=== PATIENT | male | born 1990 | race Caucasian/White ===

== ENCOUNTER 2018-11-27 01:20 | Emergency (ER) | payer MEDICAID ==
[2018-11-27] MEDS ORDERED: NS 2,000 ML IV ONE (01:32)
--- NOTE | 2018-11-27 01:32 | EDPHY ---
H & P Stated Complaint: AMS, possible drug use Source: Patient, EMS - Personal History Current Tetanus/Diphtheria Vaccine: Unsure - Medical/Surgical History Hx Asthma: No Hx Chronic Respiratory Disease: No Hx Diabetes: No Hx Cardiac Disease: No Hx Renal Disease: No Hx Cirrhosis: No Hx Alcoholism: No Hx HIV/AIDS: No Hx Splenectomy or Spleen Trauma: No Other PMH: denies - Social History Smoking Status: Current every day smoker Time Seen by Provider: 11/27/18 01:31 HPI/ROS: HPI CHIEF COMPLAINT: Altered mental status, methamphetamine abuse. HISTORY OF PRESENT ILLNESS: 28-year-old male, admits to doing large amount of methamphetamine tonight. He states 1 g. Denies any other drugs or alcohol. He is unsure exactly what time he took this methamphetamine. He mainly refused answer most of my questions. He arrives to the emergency room altered, is pupils are 7 mm equal minimally reactive to light, he has noted be tachycardic in the 140s. He admits to methamphetamine use. He denies any focal complaints at this time. Past Medical History: Denies medical history Past Surgical History: Denies surgical history Social History: methamphetamine abuse tonight. Family History: Noncontributory ROS REVIEW OF SYSTEMS: Limited due to patient's mental state and under the influence of methamphetamine as well as not answer my questions. Exam Constitutional tachycardic, triage nursing summary reviewed, vital signs reviewed, awake/alert. Tachycardic 140s Eyes normal conjunctivae and sclera, 7 mm equal minimally reactive to light HENT normal inspection, atraumatic, moist mucus membranes, no epistaxis, neck supple/ no meningismus, no raccoon eyes. Respiratory clear to auscultation bilaterally, normal breath sounds, no respiratory distress, no wheezing. Cardiovascular tachycardic in the 140s, regular rhythm, no murmur, no edema, distal pulses normal. Gastrointestinal soft, non-tender, no rebound, no guarding, normal bowel sounds, no distension, no pulsatile mass. Genitourinary no CVA tenderness. Musculoskeletal no midline vertebral tenderness, full range of motion, no calf swelling, no tenderness of extremities, no meningismus, good pulses, neurovascularly intact. Skin pink, warm, & dry, no rash, skin atraumatic. Neurologic confused, does not answer my questions, under the influence of meth. Psychiatric normal mood/affect. Heme/Lymph/Immune no lymphadenopathy. Differential Diagnosis: Includes but is not limited to in a particular order polysubstance abuse, methamphetamine intoxication, dehydration, rhabdomyolysis. Medical Decision Making: Plan for this patient IV establishment IV fluid bolus 1 mg IV Ativan, Zyprexa 5 mg p.o., drug screen, alcohol level, electrolytes, EKG , chest x-ray. Re-evaluation: EKG interpretation by me on record in [employer] system. Impression time of EKG 1:32 a.m. Sinus tach 140 motion artifact. 0229: Chest x-ray reviewed. Negative for acute cardiopulmonary disease. Given the patient's agitation, tachycardia, meth use I have ordered the patient IV Ativan 2 mg, IV fluids 2 L, Zyprexa 5 mg will continue monitor. 0328: Patient continues to be very agitated. Patient is already received 2 mg IV Ativan and 10 mg Zyprexa. 3rd L ordered. 1 more mg of IV Ativan ordered. Will closely monitor on cardiac monitoring. Drug screen positive for methamphetamine. 0631AM: 11/27/18: Patient signed over to Dr. Raymond. Patient needs to metabolize medications and meth. Once awake, will need re-eval. ED x-ray chest one view negative for acute cardiopulmonary disease. Patient sobering from his Ativan, Zyprexa, and methamphetamine. Will need more time. (Jose Omer) Constitutional: Initial Vital Signs Temperature (C) 37.6 C 11/27/18 01:25 Heart Rate 141 H 11/27/18 01:25 Respiratory Rate 18 11/27/18 01:25 Blood Pressure 129/92 H 11/27/18 01:25 O2 Sat (%) 96 11/27/18 01:25 O2 Delivery Mode Room Air Allergies/Adverse Reactions: No Known Allergies Allergy (Unverified 01/17/10 13:05) Home Medications: Medication Instructions Recorded NK [No Known Home Meds] 11/27/18 Medical Decision Making Other Provider: I assumed care of this patient from Dr. Omer at 7:00 a.m.. He has been receiving IV fluids with improvement in his tachycardia. Will allow more time for him to metabolize his methamphetamine and re-evaluate. Patient's heart rate normalized. His mother arrived in the emergency department. I spoke with the mother and the patient. He admits to doing methamphetamine. Apparently he had been drug free for an appreciable period of time but relapsed relatively recently. He would like to return home. 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 His mother is comfortable with him being discharged from the hospital. When I examined him he was slightly sleepy but easily awakened, initially somewhat uncooperative with my questioning but ultimately cooperative (although not very forthcoming). On exam is pupils are pinpoint, speech is clear, he is moving all 4 extremities spontaneously and has a normal gait, heart has a regular rate and rhythm, lungs are clear, and abdomen is soft. He is being discharged home. He told me that he would like to enter rehab facility. I offered resources but both he and his mother stated that they know about all of the available resources. (Bessie Raymond) - Data Points Laboratory Results: Laboratory Results 11/27/18 01:22 11/27/18 01:22 Medications Given: Discontinued Medications Sodium Chloride (Ns) 2,000 mls @ 0 mls/hr IV EDNOW ONE; Wide Open PRN Reason: Protocol Stop: 11/27/18 01:33 Last Admin: 11/27/18 01:40 Dose: 2,000 mls Sodium Chloride (Ns) 1,000 mls @ 0 mls/hr IV ONCE ONE PRN Reason: Wide Open Stop: 11/27/18 03:03 Last Admin: 11/27/18 03:37 Dose: 1,000 mls Lorazepam (Ativan Injection) 1 mg IVP EDNOW ONE Stop: 11/27/18 01:37 Last Admin: 11/27/18 01:41 Dose: 1 mg Lorazepam (Ativan Injection) 1 mg IVP EDNOW ONE Stop: 11/27/18 02:26 Last Admin: 11/27/18 02:26 Dose: 1 mg Lorazepam (Ativan Injection) 1 mg IVP EDNOW ONE Stop: 11/27/18 03:29 Last Admin: 11/27/18 03:37 Dose: 1 mg Olanzapine (Olanzapine) 5 mg PO ONCE ONE Stop: 11/27/18 01:37 Last Admin: 11/27/18 01:41 Dose: 5 mg Olanzapine (Zyprexa Zydis) 5 mg PO EDNOW ONE Stop: 11/27/18 02:53 Last Admin: 11/27/18 02:53 Dose: 5 mg Departure - Departure Disposition: Home, Routine, Self-Care Clinical Impression: Methamphetamine abuse, Tachycardia Condition: Good Instructions: Methamphetamine Abuse (ED), Tachycardia (ED) Additional Instructions: Please stop doing methamphetamine it is very dangerous. Referrals: [facility],. [Clinic] - As per Instructions [facility] [Outside] - As per Instructions Narcotics Anonymous [Outside] - As per Instructions
[2018-11-27] MEDS ORDERED: OLANZapine 5 MG TAB PO ONE (01:36)
[2018-11-27] MEDS ORDERED: LORazepam 2 MG/ML INJ IVP ONE ×3 (01:36→03:28)
[2018-11-27 01:40] LABS: PLATELET COUNT 321 10^3/uL (150-400)
[2018-11-27] MEDS ORDERED: LORazepam 2 MG/ML INJ ONE (02:24)
[2018-11-27] MEDS ORDERED: OLANZapine DISINTEGR 5 MG TAB ONE (02:52)
[2018-11-27] MEDS ORDERED: OLANZapine DISINTEGR 5 MG TAB PO ONE (02:52)
[2018-11-27] MEDS ORDERED: NS 1,000 ML IV ONE (03:02)
[2018-11-27 03:45] LABS: CREATINE KINASE 359 IU/L (0-224)
[2018-11-27 11:54] VITALS: BP 141/91
--- NOTE | 2018-11-27 14:35 | ASMTCMCOM ---
CM Note CM Note Notes: Attempted to engage with patient about resources for recovery prior to discharge. Patient tells me that he has been to treatment in the past-does not demonstrate interest in further information. Patient's mother is here to take patient home Date Signed: 11/27/2018 02:34 PM Electronically Signed By:Edna Armas RN
== END 2018-11-27 11:58 | disposition home or self-care (01) ==
LOC: EDUNIT#
DX: R41.82 Altered mental status, unspecified (principal); E86.9 Volume depletion, unspecified; F15.20 Other stimulant dependence, uncomplicated
CPT/HCPCS: 80305; 96374; G0480; J2060